=== PATIENT | female | born 1965 | race Caucasian/White ===

== ENCOUNTER 2021-09-25 07:32 | Emergency (ER) | payer OTHER ==
[2021-09-25 08:55] LABS: HEMOGLOBIN 11.8 gm/dl (12.3-15.3); RED BLOOD COUNT 3.99 M/UL (4.00-5.10)
[2021-09-25 09:29] LABS: BUN/CREATININE RATIO 35 (0-10)
== END 2021-09-25 11:54 | disposition home or self-care (01) ==
LOC: ER1 07:32
PROVIDERS: Family Medicine
DX: S82.831A Other fracture of upper and lower end of right fibula, initial encounter for closed fracture (principal); S80.01XA Contusion of right knee, initial encounter; F11.20 Opioid dependence, uncomplicated; G89.29 Other chronic pain; M54.50 Low back pain, unspecified; R07.9 Chest pain, unspecified; V49.9XXA Car occupant (driver) (passenger) injured in unspecified traffic accident, initial encounter
CPT/HCPCS: 71250; 72125; 72131; 73564; 73590; 80048; 82550; 82553; 83874; 84484; 85025; 93005; 99284

== ENCOUNTER 2021-10-06 23:44 | Emergency (ER) | payer OTHER ==
[2021-10-07 04:50] LABS: HEMOGLOBIN 12.5 gm/dl (12.3-15.3); RED BLOOD COUNT 4.05 M/UL (4.00-5.10); WHITE BLOOD COUNT 6.6 K/UL (4.5-11.0)
[2021-10-07 04:57] LABS: BUN/CREATININE RATIO 40 (0-10)
== END 2021-10-07 11:14 | disposition home or self-care (01) ==
LOC: ER1 23:44
PROVIDERS: Physician Assistant
DX: M96.842 Postprocedural seroma of a musculoskeletal structure following a musculoskeletal system procedure (principal); G89.29 Other chronic pain; F11.20 Opioid dependence, uncomplicated; I10 Essential (primary) hypertension; Z88.0 Allergy status to penicillin; Z88.5 Allergy status to narcotic agent; Z88.6 Allergy status to analgesic agent; V89.2XXA Person injured in unspecified motor-vehicle accident, traffic, initial encounter; Y92.410 Unspecified street and highway as the place of occurrence of the external cause
CPT/HCPCS: 72128; 72131; 72132; 80053; 83605; 85025; 85652; 86140; 99284; Q9967